=== PATIENT | female | born 1950 ===

== ENCOUNTER 2019-06-19 04:50 | Day surgery (SDC) | payer OTHER ==
[~2019-06-19 04:50] MED LIST: COZAAR25 MG PO; CRESTOR40 MG PO; SYNTHROID100 MCG PO
[2019-06-19] MEDS ORDERED: PERCOCET 5-3251 EACH PO (08:59)
== END 2019-06-19 12:18 | disposition home or self-care (01) ==
LOC: CIR.AMB 04:50
DX: C73 Malignant neoplasm of thyroid gland (principal)